=== PATIENT | female | born 1995 ===

== ENCOUNTER 2016-10-25 23:04 | Emergency (ER) | payer BC, MEDICAID ==
[2016-10-25 23:05] VITALS: BMI 37.0
--- NOTE | 2016-10-25 23:43 | ED PDOC ---
HPI: Psych/Substance Abuse Time Seen by Provider: 10/25/16 23:14 Chief Complaint (Nursing): Psychiatric Evaluation Chief Complaint (Provider): EDP History Per: Patient, EMS Additional History Per: Patient, EMS Additional Complaint(s): 21 y/o female brought in by EMS for psych eval. Patient states she got in to argument with her mother at home and her mother called 911. Denies suicidal/ homicidal ideations, hallucinations, acute medical complaints. Patient uncooperative upon intial arrival to ED, but now more calm. Patient with multiple ED visits for same. Past Medical History Reviewed: Historical Data, Nursing Documentation, Vital Signs - Medical History PMH: Anxiety, Asthma, Back Problems (Scoliosis), Bipolar Disorder, Depression, Hypercholesterolemia (Prior history), Personality Disorder Denies: Diabetes, Hepatitis, HIV, HTN, Chronic Kidney Disease, Seizures, Sexually Transmitted Disease - Family History Family History: States: Unknown Family Hx, Diabetes - Immunization History Hx Tetanus Toxoid Vaccination: Yes Hx Influenza Vaccination: Yes Hx Pneumococcal Vaccination: No - Home Medications Home Medications: Ambulatory Orders Medication Instructions Recorded Aripiprazole Extended Release 300 mg IM Q30D 08/01/16 [Abilify Maintena] [place] Carbonate 900 mg PO HS 08/01/16 - Allergies Allergies/Adverse Reactions: Allergies Allergy/AdvReac Type Severity Reaction Status Date / Time amoxicillin Allergy Mild hives Verified 10/25/16 23:11 fluoxetine HCl [From Prozac] Allergy Mild other Verified 10/25/16 23:11 haloperidol [From Haldol] Allergy Mild other Verified 10/25/16 23:11 haloperidol lactate Allergy Mild other Verified 10/25/16 23:11 [From Haldol] Review of Systems ROS Statement: Except As Marked, All Systems Reviewed And Found Negative Physical Exam - Reviewed Nursing Documentation Reviewed: Yes Vital Signs Reviewed: Yes - Physical Exam Appears: Positive for: Well, Non-toxic, Uncomfortable (crying) Head Exam: Positive for: ATRAUMATIC, NORMAL INSPECTION, NORMOCEPHALIC Skin: Positive for: Normal Color Eye Exam: Positive for: Normal appearance ENT: Positive for: Normal ENT Inspection Cardiovascular/Chest: Positive for: Regular Rate, Rhythm Respiratory: Positive for: Normal Breath Sounds Gastrointestinal/Abdominal: Positive for: Normal Exam Back: Positive for: Normal Inspection Extremity: Positive for: Normal ROM Neurologic/Psych: Positive for: Alert, Oriented - Progress ED Course And Treament: Patient evaluated by whiting can worker; does not meet criteria for admission at this time as per Dr. Jonnie Coppola for discharge Follow up outpatient therapy. Return to ED for worsening/concerning symptoms. Disposition - Clinical Impression Clinical Impression: Bipolar 1 disorder - Patient ED Disposition Is Patient to be Admitted: No Counseled Patient/Family Regarding: Diagnosis, Need For Followup - Disposition Disposition: Routine/Home Disposition Time: 03:40 Condition: STABLE Instructions: Bipolar Disorder (ED)
[2016-10-26 03:47] VITALS: BP 109/63; PULSE 76; RESP 16; TEMP 98.1; O2SAT 98
== END 2016-10-26 03:55 | disposition home or self-care (01) ==
LOC: H.ER 23:04
DX: F31.9 Bipolar disorder, unspecified (principal); E78.00 Pure hypercholesterolemia, unspecified

== ENCOUNTER 2016-12-07 00:06 | Emergency (ER) | payer BC, MEDICAID ==
[2016-12-07 00:06] VITALS: BMI 37.0
[2016-12-07 00:13] VITALS: BP 120/59; PULSE 91; RESP 18; TEMP 99.1; O2SAT 99
--- NOTE | 2016-12-07 00:27 | ED PDOC ---
HPI: Psych/Substance Abuse Time Seen by Provider: 12/07/16 00:11 Chief Complaint (Nursing): Psychiatric Evaluation Chief Complaint (Provider): crisis eval History Per: Patient History/Exam Limitations: no limitations Onset/Duration Of Symptoms: Mins Current Symptoms Are (Timing): Gone Now Additional Complaint(s): 21yo female w PMHx including bipolar disorder presents to the ED for crisis eval. Patient was referred to ED by father after verbal altercation at home. Patient was upset because she was unable to complete using home computer. This led to verbal altercation and father called EMS. Patient denies SI, HI, auditory or visual hallucinations. States she is compliant with all psychiatric medications. Past Medical History Reviewed: Historical Data, Nursing Documentation, Vital Signs Vital Signs: Last Vital Signs Temp 99.1 F 12/07/16 00:11 Pulse 91 H 12/07/16 00:11 Resp 18 12/07/16 00:11 BP 120/59 L 12/07/16 00:11 Pulse Ox 99 12/07/16 00:11 - Medical History PMH: Anxiety, Asthma, Back Problems (Scoliosis), Bipolar Disorder, Depression, Hypercholesterolemia (Prior history), Personality Disorder Denies: Diabetes, Hepatitis, HIV, HTN, Chronic Kidney Disease, Seizures, Sexually Transmitted Disease - Surgical History Surgical History: No Surg Hx - Family History Family History: States: Diabetes - Social History Current smoker - smoking cessation education provided: No Alcohol: None Drugs: Denies - Immunization History Hx Tetanus Toxoid Vaccination: Yes Hx Influenza Vaccination: Yes Hx Pneumococcal Vaccination: No - Home Medications Home Medications: Ambulatory Orders Medication Instructions Recorded lamoTRIgine [LaMICtal] 25 mg PO BID 11/16/16 - Allergies Allergies/Adverse Reactions: Allergies Allergy/AdvReac Type Severity Reaction Status Date / Time amoxicillin Allergy Mild hives Verified 11/16/16 15:47 fluoxetine HCl [From Prozac] Allergy Mild other Verified 11/16/16 15:47 haloperidol [From Haldol] Allergy Mild other Verified 11/16/16 15:47 haloperidol lactate Allergy Mild other Verified 11/16/16 15:47 [From Haldol] Review of Systems ROS Statement: Except As Marked, All Systems Reviewed And Found Negative Psych: Positive for: Other (no HI, no auditory or visual hallucinations ). Negative for: Suicidal ideation Physical Exam - Reviewed Nursing Documentation Reviewed: Yes Vital Signs Reviewed: Yes - Physical Exam Appears: Positive for: Well, No Acute Distress Head Exam: Positive for: ATRAUMATIC, NORMAL INSPECTION, NORMOCEPHALIC Skin: Positive for: Normal Color, Warm, Dry Eye Exam: Positive for: Normal appearance ENT: Positive for: Normal ENT Inspection Neck: Positive for: Normal, Painless ROM, Supple Cardiovascular/Chest: Positive for: Regular Rate, Rhythm. Negative for: Murmur , Tachycardia Respiratory: Positive for: Normal Breath Sounds. Negative for: Wheezing, Respiratory Distress Gastrointestinal/Abdominal: Positive for: Normal Exam, Soft. Negative for: Tenderness Extremity: Positive for: Normal ROM. Negative for: Deformity, Swelling Neurologic/Psych: Positive for: Alert, Oriented - ECG O2 Sat by Pulse Oximetry: 99 Pulse Ox Interpretation: Normal (RA) Medical Decision Making Medical Decision Makin: Impression: 21yo female w verbal altercation in setting of known bipolar disorder Patient was evaluated by cinder worker and found to be stable for discharge. Dx: adjustment disorder stable Scribe Attestation: Documented by Nimo Kenney acting as a scribe for Lázaro Lopez MD. Provider Scribe Attestation: All medical record entries made by the Scribe were at my direction and personally dictated by me. I have reviewed the chart and agree that the record accurately reflects my personal performance of the history, physical exam, medical decision making, and the department course for this patient. I have also personally directed, reviewed, and agree with the discharge instructions and disposition. Disposition - Clinical Impression Clinical Impression: Adjustment disorder - Patient ED Disposition Is Patient to be Admitted: No - Disposition Disposition: Routine/Home Disposition Time: 00:20 Condition: STABLE Instructions: Stress (ED)
== END 2016-12-07 00:26 | disposition home or self-care (01) ==
LOC: H.ER 00:06
DX: F43.20 Adjustment disorder, unspecified (principal); E78.00 Pure hypercholesterolemia, unspecified; F31.9 Bipolar disorder, unspecified; F41.9 Anxiety disorder, unspecified; J45.909 Unspecified asthma, uncomplicated; M41.9 Scoliosis, unspecified

== ENCOUNTER 2017-03-11 05:02 | Observation (INO) | payer BC, MEDICAID ==
[2017-03-11 05:02] VITALS: BMI 37.0
--- NOTE | 2017-03-11 05:25 | ED PDOC ---
HPI: Psych/Substance Abuse Time Seen by Provider: 03/11/17 05:23 Chief Complaint (Nursing): Psychiatric Evaluation Chief Complaint (Provider): SUICIDAL IDEATION History Per: Patient (22 Y/O FEMALE HERE FOR COMPLAINT OF SUICIDAL IDEATION AND PLAN TO JUMP INTO TRAFFIC. PATIENT SHE HAS MADE A SIMILAR ATTEMPT IN PAST. STATES SHE IS HOMELESS AND REQUESTS PSYCHIATRIC ADMISSION TO [facility]. IS CURRENTLY ON LAMICTAL) Past Medical History Reviewed: Historical Data, Nursing Documentation, Vital Signs Vital Signs: Last Vital Signs Temp 98 F 03/11/17 05:17 Pulse 83 03/11/17 05:17 Resp 18 03/11/17 05:17 BP 117/70 03/11/17 05:17 Pulse Ox 98 03/11/17 05:17 - Medical History PMH: Anxiety, Asthma, Back Problems (Scoliosis), Bipolar Disorder, Depression, Hypercholesterolemia (Prior history), Personality Disorder Denies: Diabetes, Hepatitis, HIV, HTN, Chronic Kidney Disease, Seizures, Sexually Transmitted Disease - Family History Family History: States: Unknown Family Hx, Diabetes - Immunization History Hx Tetanus Toxoid Vaccination: Yes Hx Influenza Vaccination: Yes Hx Pneumococcal Vaccination: No - Home Medications Home Medications: Ambulatory Orders Medication Instructions Recorded Lamotrigine [Lamictal Xr] 100 mg PO DAILY 03/11/17 hydrOXYzine Pamoate [Vistaril] 50 mg PO BID 03/11/17 - Allergies Allergies/Adverse Reactions: Allergies Allergy/AdvReac Type Severity Reaction Status Date / Time amoxicillin Allergy Mild hives Verified 11/16/16 15:47 fluoxetine HCl [From Prozac] Allergy Mild other Verified 11/16/16 15:47 haloperidol [From Haldol] Allergy Mild other Verified 11/16/16 15:47 haloperidol lactate Allergy Mild other Verified 11/16/16 15:47 [From Haldol] Review of Systems ROS Statement: Except As Marked, All Systems Reviewed And Found Negative Physical Exam - Reviewed Nursing Documentation Reviewed: Yes Vital Signs Reviewed: Yes - Physical Exam Appears: Positive for: Well, Non-toxic, No Acute Distress Head Exam: Positive for: ATRAUMATIC, NORMAL INSPECTION, NORMOCEPHALIC Skin: Positive for: Normal Color, Warm, DRY Eye Exam: Positive for: EOMI, Normal appearance, PERRL ENT: Positive for: Normal ENT Inspection Neck: Positive for: Normal, Painless ROM Cardiovascular/Chest: Positive for: Regular Rate, Rhythm Respiratory: Positive for: CNT, Normal Breath Sounds Gastrointestinal/Abdominal: Positive for: Normal Exam, Bowel Sounds, Soft Back: Positive for: Normal Inspection Extremity: Positive for: Normal ROM Neurologic/Psych: Positive for: Alert, Oriented - ECG O2 Sat by Pulse Oximetry: 98 Disposition - Clinical Impression Clinical Impression: Suicidal intent - Patient ED Disposition Is Patient to be Admitted: Transfer of Care - Disposition Disposition: Transfer of Care Disposition Time: 05:53 Condition: FAIR Forms: [employer] (Lebanese) Patient Signed Over To: Lázaro Lopez Handoff Comments: BLOODWORK/UTOX/UA/UPREG/CRISIS EVAL
[2017-03-11 05:55] LABS: BASO # 0.1 K/uL (0.0-0.2); BASO % 0.9 % (0.0-2.0); EOS # 0.1 K/uL (0.0-0.7); EOS % 0.9 % (0.0-4.0); HEMATOCRIT 40.4 % (34.0-47.0); LYMPH # 2.8 K/uL (1.0-4.3); LYMPH % 36.9 % (20.0-40.0); MEAN CELL VOLUME 83.4 fl (81.0-99.0); MEAN CORPUSCULAR HEMOGLOBIN 27.6 pg (27.0-31.0); MEAN CORPUSCULAR HGB CONC 33.1 g/dL (33.0-37.0); MEAN PLATELET VOLUME 8.6 fl (7.2-11.7); MONO # 0.3 K/uL (0.0-0.8); MONO % 4.5 % (0.0-10.0); NEUT # 4.3 K/uL (1.8-7.0); NEUT % 56.8 % (50.0-75.0); NRBC % 0.1 % (0.0-0.0); WHITE BLOOD COUNT 7.7 K/uL (4.8-10.8)
[2017-03-11 06:04] LABS: ALB/GLOB RATIO 1.4 (1.0-2.1); ALCOHOL SERUM < 10 mg/dl (0-10); ALKALINE PHOSPHATASE 79 U/L (38-126); ALT/SGPT 33 U/L (9-52); AST/SGOT 26 U/L (14-36); BILIRUBIN,TOTAL 0.3 mg/dl (0.2-1.3); BLOOD UREA NITROGEN 11 mg/dl (7-17); CALCIUM 9.5 mg/dL (8.4-10.2); CARBON DIOXIDE 22 mmol/L (22-30); CHLORIDE 105 mmol/L (98-107); GFR AFRICAN-AMERICAN > 60; GLUCOSE,RANDOM 116 mg/dL (65-105); POTASSIUM 4.4 MMOL/L (3.6-5.0); SODIUM 143 mmol/l (132-148); TOTAL PROTEIN 7.5 G/DL (6.3-8.2)
--- NOTE | 2017-03-11 06:24 | ED PDOC ---
- Laboratory Results Result Diagrams: 03/11/17 05:40 03/11/17 05:40 - ECG O2 Sat by Pulse Oximetry: 98 (RA) Pulse Ox Interpretation: Normal Medical Decision Making Medical Decision Making: Time: 6:00 --Patient was signed out to me by Angelo Becker PA-C pending crisis evaluation. Time: 6:45 --Patient will be held for [facility] [place] screening. --Patient admitted to ED-OBS for bipolar disorder. *See ED-OBS for further documentation. Scribe Attestation: Documented by Alcon Webb, acting as a scribe for Lázaro Lopez MD Provider Scribe Attestation: All medical record entries made by the Scribe were at my direction and personally dictated by me. I have reviewed the chart and agree that the record accurately reflects my personal performance of the history, physical exam, medical decision making, and the department course for this patient. I have also personally directed, reviewed, and agree with the discharge instructions and disposition. Disposition - Clinical Impression Clinical Impression: Bipolar disorder - POA Present On Arrival: None - Disposition Disposition: Transfer of Care Disposition Time: 07:00 Condition: STABLE Patient Signed Over To: Columba Headley ED OBSERVATION Date of observation admission: 03/11/17 Time of observation admission: 06:44 - Observation admission statement Patient is being placed in observation because:: Bipolar disorder - Goals of Observation Goals of observation are:: [facility] screening - Progress Note Progress Note: Time: 6:44 --Patient is resting. Vital signs are stable. Time: 7:00 --Patient is signed out by me to Dr. Columba Headley MD pending [facility] screening.
--- NOTE | 2017-03-11 07:17 | ED PDOC ---
- Laboratory Results Result Diagrams: 03/11/17 05:40 03/11/17 05:40 - ECG O2 Sat by Pulse Oximetry: 98 (RA) Medical Decision Making Medical Decision Makin.00am: received patient from Dr. Lopez. Patient is pending [facility] [place] [place] screening. 1.10p - patient seen by [facility] [place] [place]. She is cleared for discharged. Bipolar disorder. Disposition Doctor Will See Patient In The: Office - Clinical Impression Clinical Impression: Bipolar disorder - POA Present On Arrival: None - Disposition Disposition: Routine/Home Disposition Time: 13:20 Condition: STABLE
[2017-03-11 10:43] VITALS: BP 116/67; PULSE 85; RESP 16; TEMP 98.1
[2017-03-11 11:10] LABS: RBC URINE 3 /hpf (0-3); URINE BACTERIA RARE (<OCC); URINE BILIRUBIN NEGATIVE (NEGATIVE); URINE BLOOD NEGATIVE (NEGATIVE); URINE COLOR YELLOW (YELLOW); URINE GLUCOSE (UA) NEG (Normal); URINE KETONE NEGATIVE (NEGATIVE); URINE LEUKOCYTE ESTERASE SMALL Leu/uL (Negative); URINE PROTEIN 30 mg/dL (NEGATIVE); URINE UROBILINOGEN 0.2-1.0 mg/dL (0.2-1.0); WBC URINE 5 /hpf (0-5)
[2017-03-11 13:21] VITALS: O2SAT 98
== END 2017-03-11 13:26 | disposition home or self-care (01) ==
LOC: H.ER 05:02 → H.EROBSV 06:44
PROVIDERS: ADMIT Emergency Medicine; ATTEND Emergency Medicine
DX: F31.9 Bipolar disorder, unspecified (principal); E78.00 Pure hypercholesterolemia, unspecified; F60.9 Personality disorder, unspecified; J45.909 Unspecified asthma, uncomplicated; M41.9 Scoliosis, unspecified; F32.9 Major depressive disorder, single episode, unspecified; F41.9 Anxiety disorder, unspecified; R45.851 Suicidal ideations; Z59.0 Homelessness
CPT/HCPCS: 80053; 81003; 81025; 85025; 99283; G0378; G0480

== ENCOUNTER 2017-04-30 05:51 | Emergency (ER) | payer BC, MEDICAID ==
[2017-04-30 06:03] VITALS: BMI 43.0
--- NOTE | 2017-04-30 06:23 | ED PDOC ---
HPI: Psych/Substance Abuse Time Seen by Provider: 04/30/17 06:02 Chief Complaint (Nursing): Psychiatric Evaluation Chief Complaint (Provider): Suicidal Ideation History Per: Patient History/Exam Limitations: no limitations Additional History Per: EMS Additional Complaint(s): Kasia is a 22 y/o female with a history of bipolar disorder who was brought to the ED by EMS after experiencing suicidal thoughts with a plan to jump into oncoming traffic. Patient has been seen here multiple times with similar complaints. She is currently calm and cooperative. PMD: None Provided Past Medical History Vital Signs: Last Vital Signs Temp 97.8 F 04/30/17 06:10 Pulse 85 04/30/17 06:10 Resp 19 04/30/17 06:10 BP 126/69 04/30/17 06:10 Pulse Ox 98 04/30/17 06:10 - Medical History PMH: Anxiety, Asthma, Back Problems (Scoliosis), Bipolar Disorder, Depression, Hypercholesterolemia (Prior history), Personality Disorder Denies: Diabetes, Hepatitis, HIV, HTN, Chronic Kidney Disease, Seizures, Sexually Transmitted Disease - Family History Family History: States: Unknown Family Hx, Diabetes - Social History Current smoker - smoking cessation education provided: No Ex-Smoker (has not smoked in the last 12 months): No Alcohol: None Drugs: Denies - Immunization History Hx Tetanus Toxoid Vaccination: Yes Hx Influenza Vaccination: Yes Hx Pneumococcal Vaccination: No - Home Medications Home Medications: Ambulatory Orders Medication Instructions Recorded [place] Carbonate 300 mg PO BID 04/28/17 - Allergies Allergies/Adverse Reactions: Allergies Allergy/AdvReac Type Severity Reaction Status Date / Time amoxicillin Allergy Mild hives Verified 04/30/17 06:10 fluoxetine HCl [From Prozac] Allergy Mild other Verified 04/30/17 06:10 haloperidol [From Haldol] Allergy Mild other Verified 04/30/17 06:10 haloperidol lactate Allergy Mild other Verified 04/30/17 06:10 [From Haldol] Review of Systems ROS Statement: Except As Marked, All Systems Reviewed And Found Negative Psych: Positive for: Suicidal ideation Physical Exam - Reviewed Nursing Documentation Reviewed: Yes Vital Signs Reviewed: Yes - Physical Exam Appears: Positive for: Non-toxic, No Acute Distress Head Exam: Positive for: ATRAUMATIC, NORMAL INSPECTION, NORMOCEPHALIC Skin: Positive for: Normal Color, Warm, Dry Eye Exam: Positive for: Normal appearance, EOMI, PERRL. Negative for: Nystagmus ENT: Positive for: Normal ENT Inspection Neck: Positive for: Normal, Painless ROM, Supple Cardiovascular/Chest: Positive for: Regular Rate, Rhythm. Negative for: Murmur Respiratory: Positive for: Normal Breath Sounds. Negative for: Respiratory Distress Gastrointestinal/Abdominal: Positive for: Normal Exam, Bowel Sounds, Soft. Negative for: Tenderness Back: Positive for: Normal Inspection Extremity: Positive for: Normal ROM. Negative for: Pedal Edema, Deformity Neurologic/Psych: Positive for: Alert, Oriented. Negative for: Motor/Sensory Deficits - ECG O2 Sat by Pulse Oximetry: 98 (RA) Pulse Ox Interpretation: Normal Medical Decision Making Medical Decision Making: Time: 6:03 Initial Impression; 22 y/o female with suicidal ideation Initial Plan: --Urine Drug Screen --Crisis Evaluation --Urine Dipstick --1:1 Observation Time: 7:00 --Patient signed out to Dr. Kaye Kumar pending labs, crisis evaluation, and reevaluation. Scribe Attestation: Documented by Alcon Webb, acting as a scribe for Lázaro Lopez MD Provider Scribe Attestation: All medical record entries made by the Scribe were at my direction and personally dictated by me. I have reviewed the chart and agree that the record accurately reflects my personal performance of the history, physical exam, medical decision making, and the department course for this patient. I have also personally directed, reviewed, and agree with the discharge instructions and disposition. Disposition - Clinical Impression Clinical Impression: Alcohol intoxication - Patient ED Disposition Is Patient to be Admitted: Transfer of Care - Disposition Referrals: [facility] [Outside] Disposition: Transfer of Care Disposition Time: 07:00 Condition: FAIR Additional Instructions: Follow up with your PCP in 2-3 days. Patient Signed Over To: Orbelyan,Gerasim A Handoff Comments: pending sobriety and crisis eval
[2017-04-30 06:32] VITALS: BP 126/69; PULSE 85; RESP 19; TEMP 97.8; O2SAT 98
--- NOTE | 2017-04-30 07:44 | ED PDOC ---
- ECG O2 Sat by Pulse Oximetry: 98 (RA) Pulse Ox Interpretation: Normal Medical Decision Making Medical Decision Making: Time: 0700 --Patient was endorsed to provider by Dr. Lázaro Lopez. Pending crisis evaluation. Time: 814 --Upon crisis evaluation, patient is medically stable and requires no further treatment in the ED at this time. Patient will be discharged home by Dr. Cristina. Counseling was provided and all questions were answered regarding diagnosis. There is agreement to discharge plan. Return if symptoms persist or worsen. Clinical Impression: Bipolar disorder Scribe Attestation: Documented by Ana Rosa Castro, acting as a scribe for Kaye Kumar MD. Provider Scribe Attestation: All medical record entries made by the Scribe were at my direction and personally dictated by me. I have reviewed the chart and agree that the record accurately reflects my personal performance of the history, physical exam, medical decision making, and the department course for this patient. I have also personally directed, reviewed, and agree with the discharge instructions and disposition. Disposition - Clinical Impression Clinical Impression: Alcohol intoxication, Bipolar 1 disorder - POA Present On Arrival: None - Disposition Referrals: [facility] [Outside] Disposition: Routine/Home Disposition Time: 09:00 Condition: GOOD Additional Instructions: Follow up with your PCP in 2-3 days.
== END 2017-04-30 09:17 | disposition home or self-care (01) ==
LOC: H.ER 05:51
DX: R45.851 Suicidal ideations (principal); F31.9 Bipolar disorder, unspecified; E78.00 Pure hypercholesterolemia, unspecified; F10.129 Alcohol abuse with intoxication, unspecified; F41.9 Anxiety disorder, unspecified; J45.909 Unspecified asthma, uncomplicated; M41.9 Scoliosis, unspecified
CPT/HCPCS: 81025; 99282; G0480

== ENCOUNTER 2017-06-26 20:33 | Emergency (ER) | payer BC, MEDICAID ==
[2017-06-26 20:33] VITALS: BMI 43.0
[2017-06-26 20:38] VITALS: BP 115/68; PULSE 76; RESP 16; TEMP 98.7; O2SAT 100
--- NOTE | 2017-06-26 21:38 | ED PDOC ---
HPI: Psych/Substance Abuse Time Seen by Provider: 06/26/17 21:30 Chief Complaint (Nursing): Psychiatric Evaluation Chief Complaint (Provider): Psych evaluation History Per: Patient History/Exam Limitations: no limitations Onset/Duration Of Symptoms: Days Additional Complaint(s): Patient is a 22 y/o female with a past medical history of bipolar disorder (on lithium) presenting to the emergency department for a psych evaluation. Reports that she has an upcoming appointment to meet with her new psych doctor on 06/28/17, but felt suicidal ideation today and went to the ED for evaluation. Currently denies any plan or other complaints. PCP: none provided. Past Medical History Reviewed: Historical Data, Nursing Documentation, Vital Signs Vital Signs: Last Vital Signs Temp 98.7 F 06/26/17 20:35 Pulse 76 06/26/17 20:35 Resp 16 06/26/17 20:35 BP 115/68 06/26/17 20:35 Pulse Ox 100 06/26/17 20:35 - Medical History PMH: Anxiety, Asthma, Back Problems (Scoliosis), Bipolar Disorder, Depression, Hypercholesterolemia (Prior history), Personality Disorder Denies: Diabetes, Hepatitis, HIV, HTN, Chronic Kidney Disease, Seizures, Sexually Transmitted Disease - Family History Family History: States: Unknown Family Hx, Diabetes - Immunization History Hx Tetanus Toxoid Vaccination: Yes Hx Influenza Vaccination: Yes Hx Pneumococcal Vaccination: No - Home Medications Home Medications: Ambulatory Orders Medication Instructions Recorded [place] Carbonate 300 mg PO BID 04/28/17 - Allergies Allergies/Adverse Reactions: Allergies Allergy/AdvReac Type Severity Reaction Status Date / Time amoxicillin Allergy Mild hives Verified 04/30/17 06:10 fluoxetine HCl [From Prozac] Allergy Mild other Verified 04/30/17 06:10 haloperidol [From Haldol] Allergy Mild other Verified 04/30/17 06:10 haloperidol lactate Allergy Mild other Verified 04/30/17 06:10 [From Haldol] Review of Systems ROS Statement: Except As Marked, All Systems Reviewed And Found Negative Psych: Positive for: Suicidal ideation (resolved, without plan) Physical Exam - Reviewed Nursing Documentation Reviewed: Yes Vital Signs Reviewed: Yes - Physical Exam Appears: Positive for: Well, Non-toxic, No Acute Distress Head Exam: Positive for: ATRAUMATIC, NORMAL INSPECTION, NORMOCEPHALIC Skin: Positive for: Normal Color, Warm, Dry Eye Exam: Positive for: Normal appearance Neck: Positive for: Normal, Painless ROM Cardiovascular/Chest: Positive for: Regular Rate, Rhythm Respiratory: Negative for: Accessory Muscle Use, Respiratory Distress Extremity: Positive for: Normal ROM. Negative for: Pedal Edema Neurologic/Psych: Positive for: Alert, Oriented (x3) - ECG O2 Sat by Pulse Oximetry: 100 (RA) Pulse Ox Interpretation: Normal Medical Decision Making Medical Decision Making: Patient was seen by crisis and cleared by Dr. Del Cid. Admitted to nitro worker that she came to the hospital because she missed court date. ~ Scribe Attestation: Documented by Elvia Hernandez, acting as a scribe for RIKA Motley. Provider Scribe Attestation: All medical record entries made by the Scribe were at my direction and personally dictated by me. I have reviewed the chart and agree that the record accurately reflects my personal performance of the history, physical exam, medical decision making, and the department course for this patient. I have also personally directed, reviewed, and agree with the discharge instructions and disposition. Disposition - Clinical Impression Clinical Impression: Bipolar disorder - Disposition Disposition Time: 22:45 Condition: FAIR Instructions: Bipolar Disorder (ED) Forms: [employer] (Turkish)
== END 2017-06-26 22:45 | disposition home or self-care (01) ==
LOC: H.ER 20:33
DX: F31.9 Bipolar disorder, unspecified (principal); J45.909 Unspecified asthma, uncomplicated; M41.9 Scoliosis, unspecified; Z00.8 Encounter for other general examination

== ENCOUNTER 2017-07-11 18:58 | Inpatient (IN) | payer BC, MEDICAID ==
[2017-07-11 18:58] VITALS: BMI 43.0
--- NOTE | 2017-07-11 20:42 | ED PDOC ---
HPI: Psych/Substance Abuse Time Seen by Provider: 07/11/17 20:00 Chief Complaint (Nursing): Psychiatric Evaluation Chief Complaint (Provider): Suicidal ideation History Per: Patient History/Exam Limitations: no limitations Onset/Duration Of Symptoms: Days (today) Current Symptoms Are (Timing): Still Present Additional Complaint(s): Suicidal thoughts. No chest pain, weakness, dyspnea, headches, nausea, vomit. No attempt. Not homicidal. did not take any meds for it. No alcohol. No drugs. Past Medical History Reviewed: Nursing Documentation, Vital Signs Vital Signs: Last Vital Signs Temp 98.5 F 07/11/17 19:41 Pulse 84 07/11/17 19:41 Resp 18 07/11/17 19:41 BP 145/85 07/11/17 19:41 Pulse Ox 96 07/11/17 19:41 - Medical History PMH: Anxiety, Asthma, Back Problems (Scoliosis), Bipolar Disorder, Depression, Hypercholesterolemia (Prior history), Personality Disorder Denies: Diabetes, Hepatitis, HIV, HTN, Chronic Kidney Disease, Seizures, Sexually Transmitted Disease - Surgical History Surgical History: No Surg Hx - Family History Family History: States: Unknown Family Hx - Immunization History Hx Tetanus Toxoid Vaccination: No Hx Influenza Vaccination: No Hx Pneumococcal Vaccination: No - Home Medications Home Medications: Ambulatory Orders Medication Instructions Recorded [place] Carbonate 300 mg PO BID 04/28/17 Lamictal 1 tab PO DAILY 07/10/17 - Allergies Allergies/Adverse Reactions: Allergies Allergy/AdvReac Type Severity Reaction Status Date / Time amoxicillin Allergy Mild hives Verified 07/10/17 20:38 fluoxetine HCl [From Prozac] Allergy Mild other Verified 07/10/17 20:38 haloperidol [From Haldol] Allergy Mild other Verified 07/10/17 20:38 haloperidol lactate Allergy Mild other Verified 07/10/17 20:38 [From Haldol] Review of Systems ROS Statement: Except As Marked, All Systems Reviewed And Found Negative Psych: Positive for: Depression, Suicidal ideation Physical Exam - Reviewed Nursing Documentation Reviewed: Yes Vital Signs Reviewed: Yes - Physical Exam Appears: Positive for: Non-toxic, No Acute Distress Head Exam: Positive for: ATRAUMATIC, NORMAL INSPECTION, NORMOCEPHALIC Skin: Positive for: Normal Color, Warm, DRY Eye Exam: Positive for: EOMI, Normal appearance, PERRL ENT: Positive for: Normal ENT Inspection Neck: Positive for: Normal, Painless ROM Cardiovascular/Chest: Positive for: Regular Rate, Rhythm Respiratory: Positive for: CNT, Normal Breath Sounds Gastrointestinal/Abdominal: Positive for: Normal Exam, Bowel Sounds, Soft. Negative for: Tenderness Back: Positive for: Normal Inspection. Negative for: L CVA Tenderness, R CVA Tenderness Extremity: Positive for: Normal ROM, Other (abrasion R wrist). Negative for: Tenderness, Pedal Edema Neurologic/Psych: Positive for: Alert, health and safety inspector II-XII, Oriented. Negative for: Motor/Sensory Deficits - ECG O2 Sat by Pulse Oximetry: 96 Pulse Ox Interpretation: Normal - Progress ED Course And Treament: 2044: Crisis saw pt. Will admit. AAOx3. Medically stable. Disposition - Clinical Impression Clinical Impression: Depression - Patient ED Disposition Is Patient to be Admitted: Yes - Disposition Disposition Time: 20:45 Condition: FAIR - Pt Status Changed To: Hospital Disposition Of: Inpatient - Admit Certification Admit to Inpatient:: After my assessment, the patient will require hospitalization for at least two midnights. This is because of the severity of symptoms shown, intensity of services needed, and/or the medical risk in this patient being treated as an outpatient. - POA Present On Arrival: None
[2017-07-11 21:22] LABS: BASO # 0.1 K/uL (0.0-0.2); BASO % 0.6 % (0.0-2.0); EOS # 0.1 K/uL (0.0-0.7); EOS % 1.1 % (0.0-4.0); HEMOGLOBIN 12.8 g/dL (12.0-16.0); LYMPH # 3.7 K/uL (1.0-4.3); LYMPH % 38.3 % (20.0-40.0); MEAN CELL VOLUME 83.8 fl (81.0-99.0); MEAN CORPUSCULAR HEMOGLOBIN 27.1 pg (27.0-31.0); MEAN CORPUSCULAR HGB CONC 32.3 g/dL (33.0-37.0); MEAN PLATELET VOLUME 8.4 fl (7.2-11.7); MONO # 0.3 K/uL (0.0-0.8); MONO % 3.3 % (0.0-10.0); NEUT # 5.4 K/uL (1.8-7.0); NEUT % 56.7 % (50.0-75.0); NRBC % 0.1 % (0.0-0.0); RBC 4.72 Mil/uL (3.80-5.20); RED CELL DISTRIBUTION WIDTH 13.5 % (11.5-14.5); WHITE BLOOD COUNT 9.6 K/uL (4.8-10.8)
[2017-07-11 21:33] LABS: ALB/GLOB RATIO 1.2 (1.0-2.1); ALBUMIN 4.3 g/dL (3.5-5.0); ALT/SGPT 33 U/L (9-52); AST/SGOT 31 U/L (14-36); BLOOD UREA NITROGEN 10 mg/dl (7-17); CALCIUM 9.5 mg/dL (8.4-10.2); GFR AFRICAN-AMERICAN > 60; GFR NON-AFRICAN AMERICAN > 60
[2017-07-11 21:40] LABS: BARBITURATES, UR NEGATIVE (NEGATIVE); BENZODIAZEPINES, UR NEGATIVE (NEGATIVE); OPIATES, UR NEGATIVE (NEGATIVE); PHENCYCLIDINE, UR NEGATIVE (NEGATIVE)
[2017-07-11 22:40] VITALS: O2SAT 98
[2017-07-11] MEDS ORDERED: Magnesium Hydroxide Susp 30 ml UD PO PRN (23:11)
[2017-07-11] MEDS ORDERED: Alum-Mag Hydrox-Simethicone Susp (30 mL) PO PRN (23:11)
[2017-07-11] MEDS ORDERED: DiphenhydrAMINE 50 mg/ml Inj IM PRN (23:11)
--- NOTE | 2017-07-11 23:40 | PCM.BM ---
<Andrew Esteban - Last Filed: 07/11/17 23:38> Treatment Plan Problems - Problems identified on initial assessmt Suicidal Ideation Date Initiated: 07/11/17 Time Initiated: 23:39 Assessment reference: NA Status: Active Self Esteem Disturbance Date Initiated: 07/11/17 Time Initiated: 23:39 Assessment reference: NA Status: Active Treatment assets and liabiliti Patient Assests: cooperative, ADL independent, physically healthy, negotiates basic needs Patient Liabilities: poor support system, relationship conflicts - Milieu Protocol Maintain good personal hygiene: every shift Encourage regular showers, every shift Remind patient to perform daily oral care, every shift Assist patient to perform ADL's Maintain personal safety: daily Educate patient to report safety concerns to staff, daily Monitor environment for contraband/sharps Medication safety: Monitor for expected outcome, potential side effects: daily, Assess barriers to learning: daily, Assess readiness for medication education: daily <Batsheva Cristina - Last Filed: 07/12/17 08:18> - Diagnosis (1) Bipolar disorder Status: Acute Interventions: Medication management, Individual and group therapy, Psychoeducation 07/12/17 08:18 <Tiera Ward - Last Filed: 07/12/17 12:44> Family Contact Family contact: Patient agrees to contact, Family has been contacted by patient , Telephone contact initiated by staff Family contact name: Kvng Gao- father Family contacted how many times per week?: 1 Family contact comment: [phone] - Outside Agency [facility] Care involent: Not involved Agency contact name: Pt reported she is scheduled for initial intake appointment on July 14 Agency contact number: Dr. Hany MD Care involvment: Information-sharing Agency contact number: Pt reported she does not recall his contact information, but does recall MD being located on [facility] in [place], [place]. Pt advised appeals writer to contact her father for MD contact information. Discharge/Continuing Care - Education Needs Education Needs: Family Medication, Family Diagnosis/Disease Process, Family Coping Skills, Family Community resources, Family Activities of Daily Living, Family Health Practices/Safety, Family Personal Hygiene/Grooming, Family Aftercare Safety Plan, Patient Medication, Patient Diagnosis/Disease Process, Patient Coping Skills, Patient Community resources, Patient Activities of Daily Living, Patient Health Practices/Safety, Patient Personal Hygiene/Grooming, Patient Aftercare Safety Plan - Discharge Discharge Criteria: Tolerates medication w/o severe side effects, Free of Suicidal thoughts, Normal sleep pattern, Ability to care for self, Reduction of target symptoms Discharge to:: Home, With Family - Additional Comments 07/12/17 12:18 Pt seen and discussed in team meeting. Reason for admission review and discussed. Pt reported she was referred tot he ED because "I was having suicide thoughts." Pt reported having "several stressors" however; refused to provide team with further information. Pt was vague and guarded with responses. Pt is not further coming with information and team. Pt reported "It was something at that moment, i was just emotional." Pt reported she was previously at [facility]; however, completed the program and was referred to DBT at [facility]. Pt' s social and medical issues reviewed and discussed. Pt's medications reviewed and discussed. Pt signed a 48 hour notice of intent to leave on 07/12/2017 at 9: 15AM. Pt reported she feels better and would like to go back home. Tx plan reviewed and discussed with pt. Pt advised that she will be referred to [facility] for an evaluation. Pt verbalized understanding. Sw to continue to follow case. - Treatment Team Participation Discussed with Family/SO: No Was Patient/Family/SO present at Treatment Team Meeting: Yes
--- NOTE | 2017-07-12 08:19 | PCM.PSYCH ---
Initial Psychiatric Evaluation - Initial Psychiatric Evaluation Type of Admission: Voluntary Legal Status: Capacity Chief Complaint (in patient's own words): "I'm depressed." Patient's Reaction to Hospitalization: HPI: 22 yo female w/ h/o bipolar disorder presents with worsening depression and suicidal ideation and recent attempt to walk into traffic. Patient reports that she has had worsening depression since her friend committed suicide last month. She reports sleep/appetite/concentration disturbances. +Feelings of hopelessness at times. She is able to contract for safety at this time. She reports compliance with her medications: Supai 300 mg PO BID and Lamictal 25 mg PO Daily. She denies AH/VH/paranoia/delusions. Patient also made scratches on her wrist a few days ago, but denies that that was a suicide attempt. PPHx: History of prior psychiatric admissions. Current outpatient tx w/ Dr. Greco at [facility]. PMHx: Obesity PSurgHx: Lap Band Surgery 2015 SHx: Lives w/ family, unemployed on disability for mental health. Denies drugs/ etoh/cig use. ALL: Amoxicillin, Prozac, Haldol Current Medications: Active Medications Generic Name Dose Route Start Last Admin Trade Name Freq PRN Reason Stop Dose Admin Acetaminophen 650 mg 07/11/17 23:11 Tylenol 325mg Tab PO Q4 PRN Pain, moderate (4-7) Al Hydrox/Mg Hydrox/Simethicone 30 ml 07/11/17 23:11 Maalox Plus 30 Ml PO Q4 PRN Dyspepsia Diphenhydramine HCl 50 mg 07/11/17 23:11 Benadryl IM Q6 PRN Extrapyramidal S/S Unable PO Diphenhydramine HCl 50 mg 07/11/17 23:11 Benadryl PO Q6 PRN Extrapyramidal Symptoms Diphenhydramine HCl 50 mg 07/12/17 00:50 Benadryl PO HS PRN Sleep Influenza Virus Vaccine 0.5 ml 07/12/17 10:00 Afluria (Pf)(18yr & Older) IM 07/12/17 10:01 .ONCE ONE Lorazepam 2 mg 07/11/17 23:11 Ativan IM Q4 PRN Anxiety/Agitation,Unable PO Lorazepam 2 mg 07/11/17 23:11 Ativan PO Q4 PRN Anxiety/Agitation Magnesium Hydroxide 30 ml 07/11/17 23:11 Milk Of Magnesia PO HS PRN Constipation Past Psychiatric History - Past Psychiatric History Previous Treatment History: Inpatient Pertinent Medical Hx (Current Medical&Sleep Prob, Allergies): Allergies Allergy/AdvReac Type Severity Reaction Status Date / Time amoxicillin Allergy Mild hives Verified 07/10/17 20:38 fluoxetine HCl [From Prozac] Allergy Mild other Verified 07/10/17 20:38 haloperidol [From Haldol] Allergy Mild other Verified 07/10/17 20:38 haloperidol lactate Allergy Mild other Verified 07/10/17 20:38 [From Haldol] Supai Carbonate 300 mg PO BID 04/28/17 lamoTRIgine [Lamictal] 25 mg PO DAILY 07/11/17 Review of Systems - Psychiatric Psychiatric: As Per HPI, Abnormal Sleep Pattern, Anhedonia, Change in Appetite, Depression, Difficulty Concentrating, Mood Swings, Suicidal Ideation Mental Status Examination - Personal Presentation Personal Presentation: Looks stated age - Affect Affect: Constricted, Depressed - Motor Activity Motor Activity: Calm - Reliability in Providing Information Reliability in Providing Information: Good - Speech Speech: Organized - Mood Mood: Depressed - Formal Thought Process Formal Thought Process: No Impairment - Hallucinations/Delusions Additional comments: No AH/VH/paranoia/delusions - Obsessions/Compulsions Obsessions: No Compulsions: No - Cognitive Functions Orientation: Person, Place, Situation, Time Sensorium: Alert Attention/Concentration: Attentive Estimate of Intelligence: Average Judgement: Intact, as evidence by: Insight regarding need for hospitalization Memory: Recent intact, as evidence by: Ability to recall events of the day, Remote intact, as evidenced by: Abilit to recall sig. life events, Remote intact , as evidenced by: Ability to recall historical events - Risk Risk: Suicidal, Diminished functioning - Strength & Assets Inventory Strength & Assets Inventory: Family support, Cooperative DSM 5 DX - DSM 5 DSM 5 Diagnosis: Bipolar Disorder - Recommended/Plan of Treatment Treatment Recommendations and Plan of Treatment: Bipolar Disorder; r/o Borderline Personality Disorder -Admit to psychiatry unit -Individual and group therapy -Medicine consult -Increase Supai to 300 mg PO TID -Hold Lamictal -Obtain collateral history -No 1:1 indicated at this time -Disposition planning Projected ELOS: 5-7 days Discharge Plan and Discharge Criteria: Discharge patient when she is psychiatrically stable - Smoking Cessation Smoking Cessation Initiated: No Reason for not providing: Not indicated
[2017-07-12 08:30] LABS: T4 8.66 ug/dl (5.5-11.0)
[2017-07-12 08:38] LABS: BLOOD UREA NITROGEN 9 mg/dl (7-17); CALCIUM 9.2 mg/dL (8.4-10.2); GFR AFRICAN-AMERICAN > 60; GFR NON-AFRICAN AMERICAN > 60; HDL CHOLESTEROL 32 MG/DL (30-70); LDL CHOLESTEROL 114 mg/dL (0-129)
[2017-07-12] MEDS ORDERED: Influenza Vaccine 18yr & older 0.5 ML/45 MCG SYR IM ONE (10:00)
--- NOTE | 2017-07-12 11:02 | CARD ---
APPROVED REPORT EKG Measurement Heart [id number] OR [id number] [id number] <Conclusion> Normal sinus rhythm Normal ECG
[2017-07-12 12:49] LABS: SQUAMOUS EPITHIAL 4 /hpf (0-5); URINE BILIRUBIN NEGATIVE (NEGATIVE); URINE BLOOD MODERATE (NEGATIVE); URINE CLARITY SLIGHTY-CLOUDY (Clear); URINE COLOR YELLOW (YELLOW); URINE GLUCOSE (UA) NEG (Normal); URINE LEUKOCYTE ESTERASE NEG Leu/uL (Negative); URINE NITRATE NEGATIVE (NEGATIVE); URINE PROTEIN NEGATIVE (NEGATIVE); URINE UROBILINOGEN 0.2-1.0 mg/dL (0.2-1.0)
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
[2017-07-12 15:08] VITALS: RESP 18
[2017-07-13 05:42] VITALS: BP 107/73; PULSE 75; TEMP 97.9
--- NOTE | 2017-07-13 08:30 | PCM.PYCHDC ---
Mental Status Examination - Mental Status Examination Orientation: Person, Place, Situation, Time Memory: Intact Mood: Neutral Affect: Broad Speech: Appropriate Attention: WNL Concentration: WNL Association: WNL Fund of Knowledge: WNL Formal Thought Process: No Impairment Description of patient's judgement and insight: Fair I/J Psychotic Thoughts and Behaviors: No AH/VH/paranoia/delusions Suicidal Ideation: No Current Homicidal Ideation?: No Discharge Summary - Discharge Note Reason for Hospitalization: HPI: 22 yo female w/ h/o bipolar disorder presents with worsening depression and suicidal ideation and recent attempt to walk into traffic. Patient reports that she has had worsening depression since her friend committed suicide last month. She reports sleep/appetite/concentration disturbances. +Feelings of hopelessness at times. She is able to contract for safety at this time. She reports compliance with her medications: Ferdinand 300 mg PO BID and Lamictal 25 mg PO Daily. She denies AH/VH/paranoia/delusions. Patient also made scratches on her wrist a few days ago, but denies that that was a suicide attempt. PPHx: History of prior psychiatric admissions. Current outpatient tx w/ Dr. Greco at [facility]. PMHx: Obesity PSurgHx: Lap Band Surgery 2016 SHx: Lives w/ family, unemployed on disability for mental health. Denies drugs/ etoh/cig use. ALL: Amoxicillin, Prozac, Haldol Laboratory Data: Abnormal Lab Results 07/12/17 07/12/17 07/12/17 07:43 07:43 07:43 Sodium 141 Potassium 4.1 Chloride 105 Carbon Dioxide 25 Anion Gap 15 BUN 9 Creatinine 0.8 Est GFR ( Amer) > 60 Est GFR (Non-Af Amer) > 60 Random Glucose 107 H Hemoglobin A1c 5.5 Calcium 9.2 Triglycerides 144 Cholesterol 179 LDL Cholesterol Direct 114 HDL Cholesterol 32 Thyroxine (T4) 8.66 TSH 3rd Generation 1.33 Urine Color Urine Clarity Urine pH Ur Specific [place] Urine Protein Urine Glucose (UA) Urine Ketones Urine Blood Urine Nitrate Urine Bilirubin Urine Urobilinogen Ur Leukocyte Esterase Urine RBC (Auto) Urine Microscopic WBC Ur Squamous Epith Cells RPR Nonreactive 07/12/17 12:23 Sodium Potassium Chloride Carbon Dioxide Anion Gap BUN Creatinine Est GFR ( Amer) Est GFR (Non-Af Amer) Random Glucose Hemoglobin A1c Calcium Triglycerides Cholesterol LDL Cholesterol Direct HDL Cholesterol Thyroxine (T4) TSH 3rd Generation Urine Color Yellow Urine Clarity Slighty-cloudy Urine pH 5.0 Ur Specific [place] 1.025 Urine Protein Negative Urine Glucose (UA) Neg Urine Ketones Negative Urine Blood Moderate Urine Nitrate Negative Urine Bilirubin Negative Urine Urobilinogen 0.2-1.0 Ur Leukocyte Esterase Neg Urine RBC (Auto) 2 Urine Microscopic WBC 1 Ur Squamous Epith Cells 4 RPR Consultations:: List each consultation separately and include: 1. Reason for request. 2. Findings. 3. Follow-up Consultations: Medicine consult Summary of Hospital Course include:: 1. Description of specific treatment plan utilized for patients during their course of treatmen. 2. Summarize the time- course for resolution of acute symptoms and/or regressed behaviors. 3. Describe issues identified and worked on during hospitalization. 4. Describe medication utilized. 5. Describe medical problems identified and treated. 6. Reassessment of suicide risk Summary of Hospital Course: Patient was admitted to the psychiatry unit. Individual and group therapy were provided. Patient submitted a 48 hour letter, was screened by [facility] and found to not meet criteria for involuntary commitment. She will be discharged to home AMA. Patient already has outpatient follow-up arranged. - Diagnosis (1) Bipolar disorder Current Visit: No Status: Chronic - Final Diagnosis (DSM 5) Condition upon Discharge: STABLE DSM 5: Bipolar Disorder Disposition: AGAINST MEDICAL ADVICE Follow-up Treatment Plan: Bipolar Disorder; Borderline Personality Disorder; patient will be discharged AMA as she does not meet criteria for involuntary commitment. -Individual and group therapy -Medicine consult -Continue Ferdinand 300 mg PO BID -Hold Lamictal -Discharge AMA - Smoking Cessation Smoking Cessation Medication prescribed: No Reason for not providing: Not indicated - Antipsychotic Medications Pt discharged on 2 or more routine antipsychotic medications: No
== END 2017-07-13 09:20 | disposition left against medical advice (07) | DRG 885 ==
LOC: H.ER 18:58 → H.ERHOLD 20:42 → H.STEP 23:08
PROVIDERS: ADMIT Psychiatry & Neurology Psychiatry; ATTEND Psychiatry & Neurology Psychiatry
PROC: GZHZZZZ Group Psychotherapy (ICD-10-PCS; principal; 2017-07-11)
PROC: GZ58ZZZ Individual Psychotherapy, Cognitive-Behavioral (ICD-10-PCS; 2017-07-11)
PROC: 3E0234Z Introduction of Serum, Toxoid and Vaccine into Muscle, Percutaneous Approach (ICD-10-PCS; 2017-07-12)
DX: F31.9 Bipolar disorder, unspecified (principal); R45.851 Suicidal ideations; F60.3 Borderline personality disorder; M41.9 Scoliosis, unspecified; F41.9 Anxiety disorder, unspecified; R10.13 Epigastric pain; E78.00 Pure hypercholesterolemia, unspecified; J45.909 Unspecified asthma, uncomplicated; Z23 Encounter for immunization; Z88.0 Allergy status to penicillin

== ENCOUNTER 2017-07-19 16:14 | Emergency (ER) | payer BC, MEDICAID ==
[2017-07-19 16:14] VITALS: BMI 43.0
[2017-07-19 16:27] VITALS: BP 132/72; PULSE 72; RESP 18; TEMP 98; O2SAT 99
--- NOTE | 2017-07-19 17:14 | ED PDOC ---
HPI: Psych/Substance Abuse Time Seen by Provider: 07/19/17 16:31 Chief Complaint (Nursing): Psychiatric Evaluation Chief Complaint (Provider): Psychiatric Evaluation History Per: Patient, EMS History/Exam Limitations: no limitations Onset/Duration Of Symptoms: Days (x1) Current Symptoms Are (Timing): Still Present Additional Complaint(s): 22 year old female, presenting to the ED due to aggressive behavior. Patient was discharged from psychiatric unit previously and reportedly had an argument at home. Family felt the patient was getting too aggressive and called EMS. Patient reports she was just having an argument. Denies suicidal or homicidal ideations, and hallucinations. Reports compliance with medication. Also denies drug or alcohol use. PMD: [facility] Past Medical History Reviewed: Historical Data, Nursing Documentation, Vital Signs Vital Signs: Last Vital Signs Temp 98.0 F 07/19/17 16:23 Pulse 72 07/19/17 16:23 Resp 18 07/19/17 16:23 BP 132/72 07/19/17 16:23 Pulse Ox 99 07/19/17 16:23 - Medical History PMH: Anxiety, Asthma, Back Problems (Scoliosis), Bipolar Disorder, Depression, Hypercholesterolemia (Prior history), Personality Disorder Denies: Diabetes, Hepatitis, HIV, HTN, Chronic Kidney Disease, Seizures, Sexually Transmitted Disease - Surgical History Other surgeries: Gastric sleeve - Family History Family History: States: Unknown Family Hx, Diabetes - Social History Current smoker - smoking cessation education provided: No Alcohol: Social Drugs: Denies - Immunization History Hx Tetanus Toxoid Vaccination: No Hx Influenza Vaccination: No Hx Pneumococcal Vaccination: No - Home Medications Home Medications: Ambulatory Orders Medication Instructions Recorded [place] Carbonate 300 mg PO BID #0 07/13/17 - Allergies Allergies/Adverse Reactions: Allergies Allergy/AdvReac Type Severity Reaction Status Date / Time amoxicillin Allergy Mild hives Verified 07/10/17 20:38 fluoxetine HCl [From Prozac] Allergy Mild other Verified 07/10/17 20:38 haloperidol [From Haldol] Allergy Mild other Verified 07/10/17 20:38 haloperidol lactate Allergy Mild other Verified 07/10/17 20:38 [From Haldol] Review of Systems ROS Statement: Except As Marked, All Systems Reviewed And Found Negative (as per HPI) Physical Exam - Reviewed Nursing Documentation Reviewed: Yes Vital Signs Reviewed: Yes - Physical Exam Appears: Positive for: Non-toxic, No Acute Distress Head Exam: Positive for: ATRAUMATIC, NORMOCEPHALIC Skin: Positive for: Warm, Dry Eye Exam: Positive for: EOMI, PERRL ENT: Positive for: Normal ENT Inspection Neck: Positive for: Painless ROM, Supple Cardiovascular/Chest: Positive for: Regular Rate, Rhythm. Negative for: Murmur Respiratory: Positive for: Normal Breath Sounds. Negative for: Respiratory Distress Gastrointestinal/Abdominal: Positive for: Soft Extremity: Positive for: Normal ROM. Negative for: Deformity Lymphatic: Negative for: Adenopathy Neurologic/Psych: Positive for: Alert. Negative for: Motor/Sensory Deficits - ECG O2 Sat by Pulse Oximetry: 99 (RA) Pulse Ox Interpretation: Normal Medical Decision Making Medical Decision Making: Time: 16:58 Initial Impression: Aggressive behavior Plan: --Crisis evaluation --Reevaluation Time: 17:30 Evaluated by clerical and administrative workers Jessica, who discussed with Psych guest relations associate. Patient is stable for discharge. Scribe Attestation: Documented by Blaine Lancaster acting as a scribe for Padma Magallanes MD. Scribe Attestation: All medical record entries made by the Scribe were at my direction and personally dictated by me. I have reviewed the chart and agree that the record accurately reflects my personal performance of the history, physical exam, medical decision making, and the department course for this patient. I have also personally directed, reviewed, and agree with the discharge instructions and disposition. Disposition - Clinical Impression Clinical Impression: Mood disorder - Patient ED Disposition Is Patient to be Admitted: No - Disposition Disposition: Routine/Home Disposition Time: 17:30 Condition: STABLE Additional Instructions: PLEASE FOLLOW UP INSTRUCTED BY FISHING LURE ASSEMBLER Instructions: Mood Disorders (ED) Forms: [employer] (Sami)
== END 2017-07-19 18:00 | disposition home or self-care (01) ==
LOC: H.ER 16:14
DX: F39 Unspecified mood [affective] disorder (principal); E78.00 Pure hypercholesterolemia, unspecified; F31.9 Bipolar disorder, unspecified; F41.9 Anxiety disorder, unspecified; J45.909 Unspecified asthma, uncomplicated; M41.9 Scoliosis, unspecified

== ENCOUNTER 2017-09-05 23:42 | Emergency (ER) | payer BC, MEDICAID ==
[2017-09-05 23:42] VITALS: BMI 43.0
[2017-09-06 01:03] VITALS: BP 123/70; PULSE 77; RESP 18; TEMP 97.8; O2SAT 98
--- NOTE | 2017-09-06 02:02 | ED PDOC ---
HPI: Psych/Substance Abuse Time Seen by Provider: 09/06/17 01:42 Chief Complaint (Nursing): Psychiatric Evaluation Chief Complaint (Provider): crisis eval History Per: Patient History/Exam Limitations: no limitations Onset/Duration Of Symptoms: Days (1) Current Symptoms Are (Timing): Still Present Additional Complaint(s): 22 y/o female presents for crisis eval. Patient states she was having panic attacks at home and having suicidal thoughts with a plan of "wanting to walk in front of traffic". Denies homicidal ideations, hallucinations, drug/alcohol use , acute medical complaints. Past Medical History Reviewed: Historical Data, Nursing Documentation, Vital Signs Vital Signs: Last Vital Signs Temp 97.8 F 09/06/17 00:59 Pulse 77 09/06/17 00:59 Resp 18 09/06/17 00:59 BP 123/70 09/06/17 00:59 Pulse Ox 98 09/06/17 00:59 - Medical History PMH: Anxiety, Asthma, Back Problems (Scoliosis), Bipolar Disorder, Depression, Hypercholesterolemia (Prior history), Personality Disorder Denies: Diabetes, Hepatitis, HIV, HTN, Chronic Kidney Disease, Seizures, Sexually Transmitted Disease - Family History Family History: States: Unknown Family Hx, Diabetes - Immunization History Hx Tetanus Toxoid Vaccination: No Hx Influenza Vaccination: No Hx Pneumococcal Vaccination: No - Home Medications Home Medications: Ambulatory Orders Medication Instructions Recorded [place] Carbonate 300 mg PO BID #0 07/13/17 - Allergies Allergies/Adverse Reactions: Allergies Allergy/AdvReac Type Severity Reaction Status Date / Time amoxicillin Allergy Mild hives Verified 09/06/17 00:59 fluoxetine HCl [From Prozac] Allergy Mild tongue Verified 09/06/17 00:59 swelling haloperidol [From Haldol] Allergy Mild tongue Verified 09/06/17 00:59 swelling haloperidol lactate Allergy Mild tongue Verified 09/06/17 00:59 [From Haldol] swelling Review of Systems ROS Statement: Except As Marked, All Systems Reviewed And Found Negative Psych: Positive for: Anxiety, Depression, Suicidal ideation Physical Exam - Reviewed Nursing Documentation Reviewed: Yes Vital Signs Reviewed: Yes - Physical Exam Appears: Positive for: Well, Non-toxic, No Acute Distress Head Exam: Positive for: ATRAUMATIC, NORMAL INSPECTION, NORMOCEPHALIC Skin: Positive for: Normal Color Eye Exam: Positive for: Normal appearance ENT: Positive for: Normal ENT Inspection Cardiovascular/Chest: Positive for: Regular Rate, Rhythm Respiratory: Positive for: Normal Breath Sounds Gastrointestinal/Abdominal: Positive for: Normal Exam Back: Positive for: Normal Inspection Extremity: Positive for: Normal ROM Neurologic/Psych: Positive for: Alert, Oriented - ECG O2 Sat by Pulse Oximetry: 98 - Progress ED Course And Treament: Patient evaluated by explosives worker;does not meet criteria for admission at this time as per Dr. Del Cid Stable for discharge Return precautions given. Disposition - Clinical Impression Clinical Impression: Anxiety - Patient ED Disposition Is Patient to be Admitted: No Counseled Patient/Family Regarding: Diagnosis, Need For Followup - Disposition Referrals: Thomas Cedeno MD [Primary Care Provider] - Disposition: Routine/Home Disposition Time: 03:14 Condition: STABLE Instructions: Anxiety, Adult (DC)
== END 2017-09-06 03:51 | disposition home or self-care (01) ==
LOC: H.ER 23:42
DX: F41.9 Anxiety disorder, unspecified (principal)

== ENCOUNTER 2017-09-23 00:33 | Emergency (ER) | payer BC, MEDICAID ==
[2017-09-23 00:34] VITALS: BMI 43.0
[2017-09-23 02:10] LABS: BASO # 0.1 K/uL (0.0-0.2); BASO % 1.4 % (0.0-2.0); EOS # 0.3 K/uL (0.0-0.7); EOS % 3.7 % (0.0-4.0); HEMOGLOBIN 13.4 g/dL (12.0-16.0); LYMPH # 2.8 K/uL (1.0-4.3); LYMPH % 34.6 % (20.0-40.0); MEAN CELL VOLUME 83.2 fl (81.0-99.0); MEAN CORPUSCULAR HEMOGLOBIN 27.3 pg (27.0-31.0); MEAN CORPUSCULAR HGB CONC 32.8 g/dL (33.0-37.0); MEAN PLATELET VOLUME 8.5 fl (7.2-11.7); MONO # 0.4 K/uL (0.0-0.8); MONO % 4.8 % (0.0-10.0); NEUT # 4.5 K/uL (1.8-7.0); NEUT % 55.5 % (50.0-75.0); NRBC % 0.1 % (0.0-0.0); RBC 4.91 Mil/uL (3.80-5.20); RED CELL DISTRIBUTION WIDTH 13.8 % (11.5-14.5); WHITE BLOOD COUNT 8.1 K/uL (4.8-10.8)
[2017-09-23 02:16] LABS: ACETAMINOPHEN < 10.0 ug/ml (10.0-30.0); ALB/GLOB RATIO 1.2 (1.0-2.1); ALBUMIN 4.4 g/dL (3.5-5.0); ALT/SGPT 37 U/L (9-52); AST/SGOT 30 U/L (14-36); BLOOD UREA NITROGEN 13 mg/dl (7-17); CALCIUM 9.5 mg/dL (8.4-10.2); GFR AFRICAN-AMERICAN > 60; GFR NON-AFRICAN AMERICAN > 60; SALICYLATE < 1.0 mg/dl
[2017-09-23 02:19] LABS: INR 1.2 (0.9-1.2); PROTHROMBIN TIME 12.9 Seconds (9.8-13.1)
--- NOTE | 2017-09-23 03:15 | ED PDOC ---
HPI: Psych/Substance Abuse Time Seen by Provider: 09/23/17 00:53 Chief Complaint (Nursing): Psychiatric Evaluation Chief Complaint (Provider): Psychiatric Evaluation History Per: Patient History/Exam Limitations: no limitations Additional Complaint(s): 22 year old female presents to the emergency department with a complaint of suicidal ideation. Patient told EMS that she was intending to cut herself in the vaginal although she told provider that she did not and then informed rollway worker that she overdosed on lithium. Patient is well known to the provider for multiple visits and admission. Denies any further medical complaints. Past Medical History Reviewed: Historical Data, Nursing Documentation, Vital Signs Vital Signs: Last Vital Signs Temp 98.0 F 09/23/17 00:49 Pulse 110 H 09/23/17 00:49 Resp 20 09/23/17 00:49 BP 131/76 09/23/17 00:49 Pulse Ox 98 09/23/17 00:49 - Medical History PMH: Anxiety, Asthma, Back Problems (Scoliosis), Bipolar Disorder, Depression, Hypercholesterolemia (Prior history), Personality Disorder Denies: Diabetes, Hepatitis, HIV, HTN, Chronic Kidney Disease, Seizures, Sexually Transmitted Disease - Surgical History Surgical History: No Surg Hx - Family History Family History: States: Unknown Family Hx, Diabetes - Immunization History Hx Tetanus Toxoid Vaccination: No Hx Influenza Vaccination: No Hx Pneumococcal Vaccination: No - Home Medications Home Medications: Ambulatory Orders Medication Instructions Recorded [place] Carbonate 300 mg PO BID #60 tablet 09/10/17 lamoTRIgine [Lamictal] 25 mg PO DAILY #30 tab 09/10/17 traZODone [Desyrel] 50 mg PO HS #30 tab 09/10/17 - Allergies Allergies/Adverse Reactions: Allergies Allergy/AdvReac Type Severity Reaction Status Date / Time amoxicillin Allergy Mild hives Verified 09/08/17 03:58 fluoxetine HCl [From Prozac] Allergy Mild tongue Verified 09/08/17 03:58 swelling haloperidol [From Haldol] Allergy Mild tongue Verified 09/08/17 03:58 swelling haloperidol lactate Allergy Mild tongue Verified 09/08/17 03:58 [From Haldol] swelling Review of Systems Review Of Systems: ROS cannot be obtained secondary to pt's inabilty to answer questions. (Due to clinical condition) Physical Exam - Reviewed Nursing Documentation Reviewed: Yes Vital Signs Reviewed: Yes - Physical Exam Appears: Positive for: No Acute Distress Head Exam: Positive for: NORMAL INSPECTION Skin: Positive for: Normal Color, Warm, Dry Cardiovascular/Chest: Positive for: Regular Rate, Rhythm. Negative for: Murmur Respiratory: Positive for: Normal Breath Sounds. Negative for: Accessory Muscle Use, Respiratory Distress Gastrointestinal/Abdominal: Positive for: Normal Exam, Soft. Negative for: Tenderness Extremity: Positive for: Normal ROM. Negative for: Pedal Edema Neurologic/Psych: Positive for: Alert, Oriented (x3), Other (Slurred speech) - Laboratory Results Result Diagrams: 09/23/17 02:06 09/23/17 02:06 - ECG O2 Sat by Pulse Oximetry: 98 (RA) Pulse Ox Interpretation: Normal Medical Decision Making Medical Decision Making: Time: 53 Initial Impression: Suicidal ideation Initial Plan: Drug Screen, Urine Urine DIP & preg Ziprasidone 20 mg IM Urinalysis Crisis Evaluation as ordered Reevaluation Time: 0 --Labs showed no clinical abnormalities. --Patient shows no evidence of injury and refuse to allow provider to exam her. --Patient examined by nurses Mitzy and Marsha. No signs of bleeding or discharge. Time: 0320 --Patient was evaluated by crisis and is at baseline. --Patient stable for discharge --Diagnosed with bipolar and borderline personality disorder Scribe Attestation: Documented by Queta Tripp acting as a scribe for Lázaro Lopez MD. Scribe Attestation: All medical record entries made by the Scribe were at my direction and personally dictated by me. I have reviewed the chart and agree that the record accurately reflects my personal performance of the history, physical exam, medical decision making, and the department course for this patient. I have also personally directed, reviewed, and agree with the discharge instructions and disposition. Disposition - Clinical Impression Clinical Impression: Borderline personality disorder, Bipolar disorder - Patient ED Disposition Is Patient to be Admitted: No Counseled Patient/Family Regarding: Diagnosis - Disposition Disposition: Routine/Home Disposition Time: 03:20 Condition: STABLE Instructions: Bipolar Disorder, Borderline Personality Disorder Forms: [employer] (Romanian)
[2017-09-23 04:05] VITALS: BP 120/68; PULSE 81; RESP 16; TEMP 97.6; O2SAT 100
== END 2017-09-23 04:10 | disposition home or self-care (01) ==
LOC: H.ER 00:33
DX: F60.3 Borderline personality disorder (principal); F31.9 Bipolar disorder, unspecified; E78.00 Pure hypercholesterolemia, unspecified; F41.9 Anxiety disorder, unspecified; M41.9 Scoliosis, unspecified
CPT/HCPCS: 80053; 80178; 82948; 85025; 85610; 85730; 99283; G0480

== ENCOUNTER 2017-12-25 19:18 | Emergency (ER) | payer BC, MEDICAID ==
[2017-12-25 19:20] VITALS: BMI 43.0
[2017-12-25 19:25] VITALS: BP 110/58; PULSE 77; RESP 18; TEMP 98.2; O2SAT 100
--- NOTE | 2017-12-25 19:49 | ED PDOC ---
HPI: Psych/Substance Abuse Time Seen by Provider: 12/25/17 19:28 Chief Complaint (Nursing): Psychiatric Evaluation Chief Complaint (Provider): im depressed History Per: Patient History/Exam Limitations: no limitations Onset/Duration Of Symptoms: Days (3), Sudden Onset Current Symptoms Are (Timing): Still Present Modifying Factor(s): None Severity: Severe Associated Symptoms: Anxiety, Suicidal Thoughts. denies: Agitation, Suicidal Plan Involuntary Hold By: Emergency Physician Additional History Per: Prior Records Additional Complaint(s): 22yo female c/o feeling depressed, worsening over last few days. Denies suicidal plan, states listened to music to improve mood but was not helpful. States compliance w medication lithium for bipolar. Denies drug or etoh use. PMD Dr Cedeno Past Medical History Reviewed: Historical Data, Nursing Documentation, Vital Signs Vital Signs: Last Vital Signs Temp 98.2 F 12/25/17 19:21 Pulse 77 12/25/17 19:21 Resp 18 12/25/17 19:21 BP 110/58 L 12/25/17 19:21 Pulse Ox 100 12/25/17 19:21 - Medical History PMH: Anxiety, Asthma, Back Problems (Scoliosis), Bipolar Disorder, Depression, Hypercholesterolemia (Prior history), Personality Disorder Denies: Diabetes, Hepatitis, HIV, HTN, Chronic Kidney Disease, Seizures, Sexually Transmitted Disease - Family History Family History: States: Unknown Family Hx, Diabetes - Social History Alcohol: None Drugs: Denies - Immunization History Hx Tetanus Toxoid Vaccination: No Hx Influenza Vaccination: Yes Hx Pneumococcal Vaccination: No - Home Medications Home Medications: Ambulatory Orders Medication Instructions Recorded [place] Carbonate 300 mg PO BID #60 tablet 09/10/17 - Allergies Allergies/Adverse Reactions: Allergies Allergy/AdvReac Type Severity Reaction Status Date / Time amoxicillin Allergy Mild hives Verified 12/26/17 21:02 fluoxetine HCl [From Prozac] Allergy Mild tongue Verified 12/26/17 21:02 swelling haloperidol [From Haldol] Allergy Mild tongue Verified 12/26/17 21:02 swelling haloperidol lactate Allergy Mild tongue Verified 12/26/17 21:02 [From Haldol] swelling Review of Systems Constitutional: Negative for: Fever Cardiovascular: Negative for: Chest Pain, Palpitations Gastrointestinal: Negative for: Abdominal Pain Genitourinary Female: Negative for: Dysuria Neurological: Negative for: Weakness, Numbness Psych: Positive for: Anxiety, Depression, Suicidal ideation Physical Exam - Reviewed Nursing Documentation Reviewed: Yes Vital Signs Reviewed: Yes - Physical Exam Appears: Positive for: Non-toxic, No Acute Distress Head Exam: Positive for: ATRAUMATIC, NORMAL INSPECTION, NORMOCEPHALIC Skin: Positive for: Normal Color, Warm, DRY Eye Exam: Positive for: EOMI, Normal appearance, PERRL ENT: Positive for: Normal ENT Inspection Neck: Positive for: Normal, Painless ROM Cardiovascular/Chest: Positive for: Regular Rate, Rhythm Respiratory: Positive for: CNT, Normal Breath Sounds Gastrointestinal/Abdominal: Positive for: Normal Exam, Soft Back: Positive for: Normal Inspection Extremity: Positive for: Normal ROM Neurologic/Psych: Positive for: Alert, Oriented, Mood/Affect (good eye contact conversant flat affect fair insight) - Laboratory Results Result Diagrams: 12/25/17 20:44 - ECG O2 Sat by Pulse Oximetry: 100 Medical Decision Making Medical Decision Making: per crisis discharge to followup outpt patient was comfortable with plan and feels safe going home cbc was normal further bloodwork was cancelled as not clinically applicable to patient being discharged and able to followup outpt Disposition - Clinical Impression Clinical Impression: Bipolar 1 disorder - Patient ED Disposition Is Patient to be Admitted: No Counseled Patient/Family Regarding: Studies Performed, Diagnosis - Disposition Referrals: [facility]] Disposition: Routine/Home Disposition Time: 20:10 Condition: STABLE Additional Instructions: Return to ER for any concern for self. Take all medications as prior directed. Instructions: Bipolar Disorder Forms: [employer] (Serbian)
[2017-12-25 20:48] LABS: BASO % 0.6 % (0.0-2.0); EOS # 0.1 K/uL (0.0-0.7); EOS % 1.4 % (0.0-4.0); HEMOGLOBIN 13.1 g/dL (12.0-16.0); LYMPH # 2.7 K/uL (1.0-4.3); MEAN CELL VOLUME 83.8 fl (81.0-99.0); MEAN CORPUSCULAR HEMOGLOBIN 27.4 pg (27.0-31.0); MEAN CORPUSCULAR HGB CONC 32.7 g/dL (33.0-37.0); MEAN PLATELET VOLUME 8.8 fl (7.2-11.7); MONO # 0.4 K/uL (0.0-0.8); MONO % 4.7 % (0.0-10.0); NEUT # 5.1 K/uL (1.8-7.0); NEUT % 61.3 % (50.0-75.0); RBC 4.8 Mil/uL (3.80-5.20); RED CELL DISTRIBUTION WIDTH 13.8 % (11.5-14.5); WHITE BLOOD COUNT 8.3 K/uL (4.8-10.8)
== END 2017-12-25 21:17 | disposition home or self-care (01) ==
LOC: H.ER 19:18
DX: F31.9 Bipolar disorder, unspecified (principal); Z00.8 Encounter for other general examination; J45.909 Unspecified asthma, uncomplicated; M41.9 Scoliosis, unspecified; E78.00 Pure hypercholesterolemia, unspecified

== ENCOUNTER 2018-03-29 17:05 | Emergency (ER) | payer BC, MEDICAID ==
[2018-03-29 17:05] VITALS: BMI 27.2
[2018-03-29 17:09] VITALS: BP 137/77; RESP 16; TEMP 98.6; O2SAT 96
--- NOTE | 2018-03-29 18:17 | ED PDOC ---
HPI: Psych/Substance Abuse Time Seen by Provider: 03/29/18 17:19 Chief Complaint (Nursing): Psychiatric Evaluation Chief Complaint (Provider): Suicidal ideation History Per: Patient History/Exam Limitations: no limitations Onset/Duration Of Symptoms: Days (1) Current Symptoms Are (Timing): Still Present Modifying Factor(s): None Associated Symptoms: Suicidal Thoughts Additional Complaint(s): 23yo female with past medical history of depression, anxiety, bipolar disorder, borderline personality disorder, comes to ER reporting she has had suicidal ideation today. Patient does not report a plan and states the "thoughts are random." Currently, she has no medical complaints. PMD: [facility] Past Medical History Reviewed: Historical Data, Nursing Documentation, Vital Signs Vital Signs: Last Vital Signs Temp 98.6 F 03/29/18 17:07 Pulse 109 H 03/29/18 17:07 Resp 16 03/29/18 17:07 BP 137/77 03/29/18 17:07 Pulse Ox 96 03/29/18 17:07 - Medical History PMH: Anxiety, Asthma, Back Problems (Scoliosis), Bipolar Disorder, Depression, Hypercholesterolemia (Prior history), Personality Disorder Denies: Diabetes, Hepatitis, HIV, HTN, Chronic Kidney Disease, Seizures, Sexually Transmitted Disease - Surgical History Surgical History: No Surg Hx - Family History Family History: States: Unknown Family Hx, Diabetes - Social History Current smoker - smoking cessation education provided: No Alcohol: Social Drugs: Denies - Immunization History Hx Tetanus Toxoid Vaccination: No Hx Influenza Vaccination: Yes Hx Pneumococcal Vaccination: No - Home Medications Home Medications: Ambulatory Orders Medication Instructions Recorded RX: [place] Carbonate 300 mg PO BID #60 tablet 09/10/17 - Allergies Allergies/Adverse Reactions: Allergies Allergy/AdvReac Type Severity Reaction Status Date / Time amoxicillin Allergy Mild hives Verified 03/29/18 17:07 fluoxetine HCl [From Prozac] Allergy Mild tongue Verified 03/29/18 17:07 swelling haloperidol [From Haldol] Allergy Mild tongue Verified 03/29/18 17:07 swelling haloperidol lactate Allergy Mild tongue Verified 03/29/18 17:07 [From Haldol] swelling Review of Systems ROS Statement: Except As Marked, All Systems Reviewed And Found Negative Constitutional: Negative for: Fever, Chills Cardiovascular: Negative for: Chest Pain Respiratory: Negative for: Shortness of Breath Gastrointestinal: Negative for: Abdominal Pain Musculoskeletal: Negative for: Back Pain Psych: Positive for: Suicidal ideation Physical Exam - Reviewed Nursing Documentation Reviewed: Yes Vital Signs Reviewed: Yes - Physical Exam Appears: Positive for: Non-toxic, No Acute Distress Head Exam: Positive for: ATRAUMATIC, NORMAL INSPECTION, NORMOCEPHALIC Skin: Positive for: Normal Color Eye Exam: Positive for: Normal appearance Neck: Positive for: Normal, Supple Cardiovascular/Chest: Positive for: Regular Rate, Rhythm Respiratory: Positive for: Normal Breath Sounds Gastrointestinal/Abdominal: Positive for: Normal Exam, Soft Back: Positive for: Normal Inspection Extremity: Positive for: Normal ROM Neurologic/Psych: Positive for: Alert, Oriented, Mood/Affect (calm and cooperative). Negative for: Motor/Sensory Deficits - Laboratory Results Result Diagrams: 03/29/18 18:45 03/29/18 18:45 - ECG ECG: Positive for: Interpreted By Me, Viewed By Me ECG Rhythm: Positive for: Sinus Rhythm Rate: 87 O2 Sat by Pulse Oximetry: 96 (RA) Pulse Ox Interpretation: Normal Medical Decision Making Medical Decision Making: Impression: Sucidal ideation w/o plan Plan: -- Labs -- Urinalysis -- Crisis evaluation labs reviewed. pt seen by daycare worker, stable for dc as per Dr Hare, dx bipolar disorder Patient elected to leave prior to giving urine samples for urinalysis and preg and prior to receiving discharge instructions. Scribe Attestation: Documented by Sole Mcdowell, acting as a scribe for Opal Gibsno MD. Provider Scribe Attestation: All medical record entries made by the Scribe were at my direction and pe rsonally dictated by me. I have reviewed the chart and agree that the record accurately reflects my personal performance of the history, physical exam, medical decision making, and the department course for this patient. I have also personally directed, reviewed, and agree with the discharge instructions and disposition. Disposition - Clinical Impression Clinical Impression: Bipolar disorder - Patient ED Disposition Is Patient to be Admitted: No - Disposition Disposition: Routine/Home Disposition Time: 21:00 Condition: IMPROVED Additional Instructions: follow up with your doctor return to the ED with any worsening or concerning symptoms Instructions: Bipolar Disorder (DC) Forms: [employer] (Azerbaijani)
[2018-03-29 18:57] VITALS: PULSE 87
[2018-03-29 19:01] LABS: BASO # 0.1 K/uL (0.0-0.2); BASO % 0.5 % (0.0-2.0); EOS % 0.2 % (0.0-4.0); HEMOGLOBIN 13.9 g/dL (12.0-16.0); LYMPH # 2.6 K/uL (1.0-4.3); LYMPH % 20.6 % (20.0-40.0); MEAN CORPUSCULAR HEMOGLOBIN 28.5 pg (27.0-31.0); MEAN PLATELET VOLUME 8.5 fl (7.2-11.7); MONO # 0.6 K/uL (0.0-0.8); MONO % 4.5 % (0.0-10.0); NEUT # 9.3 K/uL (1.8-7.0); NEUT % 74.2 % (50.0-75.0); RBC 4.88 Mil/uL (3.80-5.20); RED CELL DISTRIBUTION WIDTH 14.4 % (11.5-14.5); WHITE BLOOD COUNT 12.6 K/uL (4.8-10.8)
[2018-03-29 19:03] LABS: ACETAMINOPHEN < 10.0 ug/ml (10.0-30.0); SALICYLATE < 1.0 mg/dl
[2018-03-29 19:06] LABS: ALB/GLOB RATIO 1.1 (1.0-2.1); ALBUMIN 4.3 g/dL (3.5-5.0); ALT/SGPT 27 U/L (9-52); AST/SGOT 26 U/L (14-36); BLOOD UREA NITROGEN 6 mg/dl (7-17); CALCIUM 9.4 mg/dL (8.4-10.2); GFR NON-AFRICAN AMERICAN > 60
--- NOTE | 2018-03-30 10:08 | CARD ---
APPROVED REPORT Date of service: 03/29/2018 EKG Measurement Heart [id number] <Conclusion> Normal sinus rhythm Normal ECG
== END 2018-03-29 20:29 | disposition home or self-care (01) ==
LOC: H.ER 17:05
DX: F31.9 Bipolar disorder, unspecified (principal); F41.9 Anxiety disorder, unspecified; E78.00 Pure hypercholesterolemia, unspecified
CPT/HCPCS: 80053; 85025; 93005; 99283; G0480

== ENCOUNTER 2018-05-06 16:23 | Emergency (ER) | payer BC, MEDICAID ==
[2018-05-06 16:24] VITALS: BMI 43.3
[2018-05-06 16:30] VITALS: BP 129/83; PULSE 89; RESP 18; TEMP 98.3; O2SAT 99
[2018-05-06] MEDS ORDERED: Lithium Carbonate 150 MG CAP PO STA (16:48)
--- NOTE | 2018-05-06 20:03 | ED PDOC ---
HPI: Psych/Substance Abuse Time Seen by Provider: 05/06/18 16:33 Chief Complaint (Nursing): Psychiatric Evaluation Chief Complaint (Provider): Psychiatric Evaluation History Per: Patient History/Exam Limitations: no limitations Current Symptoms Are (Timing): Still Present Suicide/Self Injury Attempted (Context): None Associated Symptoms: Suicidal Thoughts Additional Complaint(s): 23 year old female history of bipolar disorder and borderline personality disorder presents to the ED via EMS for psychiatric evaluation. Patient woke up from a nap at her parents home earlier today and briefly voiced vague thoughts of self harm, causing her friend to become concerned and call an ambulance. She follows up with Dr. Urbina at [facility] [place] who prescribes her medication. According to him, he was attempting to wean the patient off lithium gradually. He directed her to cut it from twice a day to once a day. However, patient decided to completely stop use a few days ago and since then has been "out of it". She was seen in this ED on 05/02/2018, diagnosed with borderline personality disorder, and discharged. She does not offer any medical complaints at this time. Denies shortness of breath, fever, chills, chest pain, abdominal pain and headache, HI, substance use, hallucinations, suicidal ideation, a plan or any intentions. PMD: [place] Past Medical History Reviewed: Historical Data, Nursing Documentation, Vital Signs Vital Signs: Last Vital Signs Temp 98.3 F 05/06/18 16:28 Pulse 89 05/06/18 16:28 Resp 18 05/06/18 16:28 BP 129/83 05/06/18 16:28 Pulse Ox 99 05/06/18 16:28 - Medical History PMH: Anxiety, Asthma, Back Problems (Scoliosis), Bipolar Disorder, Depression, Hypercholesterolemia (Prior history), Personality Disorder Denies: Diabetes, Hepatitis, HIV, HTN, Chronic Kidney Disease, Seizures, Sexually Transmitted Disease - Surgical History Surgical History: No Surg Hx - Family History Family History: States: Unknown Family Hx, Diabetes - Immunization History Hx Tetanus Toxoid Vaccination: No Hx Influenza Vaccination: Yes Hx Pneumococcal Vaccination: No - Home Medications Home Medications: Ambulatory Orders Medication Instructions Recorded [place] Carbonate 300 mg PO BID #60 tablet 09/10/17 - Allergies Allergies/Adverse Reactions: Allergies Allergy/AdvReac Type Severity Reaction Status Date / Time amoxicillin Allergy Mild hives Verified 10/11/18 17:07 fluoxetine HCl [From Prozac] Allergy Mild tongue Verified 03/29/18 17:07 swelling haloperidol [From Haldol] Allergy Mild tongue Verified 03/29/18 17:07 swelling haloperidol lactate Allergy Mild tongue Verified 03/29/18 17:07 [From Haldol] swelling Review of Systems ROS Statement: Except As Marked, All Systems Reviewed And Found Negative Constitutional: Negative for: Fever, Chills Eyes: Negative for: Vision Change Cardiovascular: Negative for: Chest Pain, Palpitations Respiratory: Negative for: Cough, Shortness of Breath Gastrointestinal: Negative for: Nausea, Vomiting, Abdominal Pain Genitourinary Female: Negative for: Dysuria Musculoskeletal: Negative for: Neck Pain, Back Pain Skin: Negative for: Rash Neurological: Negative for: Weakness, Numbness, Dizziness Psych: Negative for: Anxiety, Depression, Psychosis, Suicidal ideation, Withdrawal Physical Exam - Reviewed Nursing Documentation Reviewed: Yes Vital Signs Reviewed: Yes - Physical Exam Appears: Positive for: Non-toxic, No Acute Distress Head Exam: Positive for: ATRAUMATIC, NORMAL INSPECTION, NORMOCEPHALIC Skin: Positive for: Normal Color, Warm, Dry Eye Exam: Positive for: EOMI, Normal appearance, PERRL ENT: Positive for: Normal ENT Inspection Neck: Positive for: Normal, Painless ROM, Supple Cardiovascular/Chest: Positive for: Regular Rate, Rhythm. Negative for: Murmur Respiratory: Positive for: Normal Breath Sounds. Negative for: Respiratory Distress Pulses-Radial (L): 2+ Pulses-Radial (R): 2+ Gastrointestinal/Abdominal: Positive for: Normal Exam, Bowel Sounds (normoactive), Soft. Negative for: Tenderness Back: Positive for: Normal Inspection. Negative for: L CVA Tenderness, R CVA Tenderness Extremity: Positive for: Normal ROM, Capillary Refill (<2s). Negative for: Deformity, Swelling Neurologic/Psych: Positive for: Alert, Oriented, Mood/Affect (normal), Gait (steady). Negative for: Motor/Sensory Deficits - ECG O2 Sat by Pulse Oximetry: 99 (RA) Pulse Ox Interpretation: Normal Medical Decision Making Medical Decision Makin:55 --Crisis evaluation --Reassess and Disposition Patient is well known to ED and general ii farmworker Liv who is familiar with her case. She spoke and educated her about correct lithium use. Dr. Hare recommends 300 mg of lithium here and then to be discharged home. Diagnosis is bipolar disorder. Advised to continue with her scheduled follow up with Dr. Urbina next week. Plan of care discussed with patient, and strict instructions given regarding prescriptions, importance of follow up, and signs to return to Emergency Department. Patient verbalizes understanding of discussion. Patient verbalized that she is to take 300mg of [place] once daily starting tomorrow until her followup with Dr. Harris next week. Patient A&Ox3, ambulating with steady gait, stable for discharge home. Requesting transport home. Will speak to patient and nursing liaison. Transport arranged for patient. Scribe Attestation: Documented by Rachelle Lester, acting as a scribe for Brooklyn Abebe PA-C Provider Scribe Attestation: All medical record entries made by the Scribe were at my direction and personally dictated by me. I have reviewed the chart and agree that the record accurately reflects my personal performance of the history, physical exam, medical decision making, and the department course for this patient. I have also personally directed, reviewed, and agree with the discharge instructions and disposition. Disposition - Clinical Impression Clinical Impression: Bipolar disorder - Patient ED Disposition Is Patient to be Admitted: No Counseled Patient/Family Regarding: Diagnosis, Need For Followup - Disposition Referrals: Vadim Urbina MD [Medical Doctor] - Disposition: Routine/Home Disposition Time: 16:55 Condition: STABLE Additional Instructions: Take lithium 300mg once daily starting tomorrow until followup with Dr. Urbina Followup with Dr. Urbina as scheduled Return to ER for new/worsening symptoms Instructions: Bipolar Disorder Forms: [employer] (Kyrgyz)
== END 2018-05-06 18:45 | disposition home or self-care (01) ==
LOC: H.ER 16:23
DX: F31.9 Bipolar disorder, unspecified (principal)

== ENCOUNTER 2018-06-22 01:48 | Emergency (ER) | payer BC, MEDICAID ==
[2018-06-22 02:08] VITALS: BMI 45.8
--- NOTE | 2018-06-22 02:09 | ED PDOC ---
HPI: Psych/Substance Abuse Time Seen by Provider: 06/22/18 02:05 Chief Complaint (Provider): psychiatric evaluation History Per: Patient History/Exam Limitations: no limitations Current Symptoms Are (Timing): Gone Now Additional Complaint(s): 23 year old female, well-known to ED for multiple visits with pmHx of borderline personality disorder, arrives to ED via EMS for a psychiatric evaluation after making suicidal statements prior to arrival. At present, she denies any suicidal ideation and states that she was temporarily upset with her family. Otherwise, she does not offer further medical complaints. PCP: none provided Past Medical History Reviewed: Historical Data, Nursing Documentation, Vital Signs - Medical History PMH: Anxiety, Asthma, Back Problems (Scoliosis), Bipolar Disorder, Depression, Hypercholesterolemia, Personality Disorder Denies: Diabetes, Hepatitis, HIV, HTN, Chronic Kidney Disease, Seizures, Sexually Transmitted Disease - Family History Family History: States: Diabetes - Immunization History Hx Tetanus Toxoid Vaccination: Yes Hx Influenza Vaccination: No Hx Pneumococcal Vaccination: No - Home Medications Home Medications: Ambulatory Orders Medication Instructions Recorded Unobtainable 06/12/18 - Allergies Allergies/Adverse Reactions: Allergies Allergy/AdvReac Type Severity Reaction Status Date / Time amoxicillin Allergy Mild hives Verified 06/22/18 02:17 fluoxetine HCl [From Prozac] Allergy Mild tongue Verified 06/22/18 02:17 swelling haloperidol [From Haldol] Allergy Mild tongue Verified 06/22/18 02:17 swelling haloperidol lactate Allergy Mild tongue Verified 06/22/18 02:17 [From Haldol] swelling Review of Systems ROS Statement: Except As Marked, All Systems Reviewed And Found Negative Psych: Positive for: Suicidal ideation Physical Exam - Reviewed Nursing Documentation Reviewed: Yes Vital Signs Reviewed: Yes - Physical Exam Appears: Positive for: No Acute Distress Head Exam: Positive for: ATRAUMATIC, NORMAL INSPECTION, NORMOCEPHALIC Skin: Positive for: Normal Color Eye Exam: Positive for: Normal appearance, EOMI, PERRL Cardiovascular/Chest: Positive for: Regular Rate, Rhythm Respiratory: Positive for: Normal Breath Sounds. Negative for: Respiratory Distress Extremity: Positive for: Normal ROM (upper/lower) Neurologic/Psych: Positive for: Alert, Oriented. Negative for: Motor/Sensory Deficits Medical Decision Making Medical Decision Making: Initial Impression: 23 year old female presents for psychiatric evaluation of suicidal ideation. Initial Plan: * Crisis evaluation Time: 205 --Upon crisis evaluation, patient is medically stable for discharge home. Counseling was provided and all questions were answered regarding diagnosis. There is agreement to discharge plan. Return if symptoms persist or worsen. Clinical Impression: Borderline personality disorder Scribe Attestation: Documented by Ana Rosa Castro, acting as a scribe for Lázaro Lopez MD. Provider Scribe Attestation: All medical record entries made by the Scribe were at my direction and personally dictated by me. I have reviewed the chart and agree that the record accurately reflects my personal performance of the history, physical exam, medical decision making, and the department course for this patient. I have also personally directed, reviewed, and agree with the discharge instructions and disposition. Disposition - Clinical Impression Clinical Impression: Borderline personality disorder - Patient ED Disposition Is Patient to be Admitted: No Counseled Patient/Family Regarding: Studies Performed, Diagnosis - Disposition Disposition: Routine/Home Disposition Time: 02:06 Condition: STABLE Instructions: Borderline Personality Disorder
[2018-06-22 02:23] VITALS: BP 130/83; PULSE 82; RESP 18; TEMP 98.6; O2SAT 96
== END 2018-06-22 02:15 | disposition home or self-care (01) ==
LOC: H.ER 01:48
DX: F60.3 Borderline personality disorder (principal); Z86.59 Personal history of other mental and behavioral disorders; Z00.8 Encounter for other general examination; J45.909 Unspecified asthma, uncomplicated